=== PATIENT | male | born 1975 | race Caucasian/White ===

== ENCOUNTER 2019-05-09 08:37 | Emergency (ER) | payer OTHER ==
[~2019-05-09] VITALS: Ht 170.2 cm; Wt 76.6 kg
--- NOTE | 2019-05-09 09:50 | NUR ---
Pt to 26 from lobby
[2019-05-09] MEDS ORDERED: USTE45DI INJ (09:56)
[2019-05-09 10:01] VITALS: BP 116/75
--- NOTE | 2019-05-09 10:01 | NUR ---
PT TO ED FOR POSSIBLE ALLERGIC REACTION TO BACTRIM. PT STARTED BACTRIM 3 DAYS AGO AND LAST DOSE WAS YESTERDAY 0600. PT PRESENTS WITH ITCHINESS THROUGHOUT BODY AND "BLISTERS AND HIVES" THROUGHOUT BODY. PT STATES HE WAS UNSURE IF HE SHOULD TAKE BENADRYL OR NOT, SO HE DECIDED NOT TO. PT DENIES ANY THROAT ITCHINESS, SOB, CP OR PRESSURE, CHEST TIGHTNESS OR AIRWAY COMPROMISE. PT CONENCTED TO MONITORS. VSS. DR. SANCHEZ TO BS FOR ASSESSMENT. AWAITING ORDERS.
[2019-05-09] MEDS ORDERED: DIPHENHYDRAMINE 25 MG CAPSULE ONE (10:57)
[2019-05-09] MEDS ORDERED: DIPHENHYDRAMINE 25 MG CAPSULE PO ONE (11:00)
--- NOTE | 2019-05-09 11:13 | NUR ---
upon entering room to wa, pt was agitated and upset that he was not given anthing for the itchiness here. pt hyperverbal and angry with [facility] bedside manner. pt educated that RNs cannot prescribe medications and that medication decision are not up to RN. Dr. Dorsey notified and orders received. 25mg PO Benadryl administered. pt instantly happier that he was administered medication.
== END 2019-05-09 11:18 | disposition home or self-care (01) ==
LOC: ED 11:00
DX: R21 Rash and other nonspecific skin eruption (principal); T36.8X5A Adverse effect of other systemic antibiotics, initial encounter; J45.909 Unspecified asthma, uncomplicated; X58.XXXA Exposure to other specified factors, initial encounter
CPT/HCPCS: 99283; Q0163